=== PATIENT | female | born 1955 | race Caucasian/White ===

== ENCOUNTER → 2018-07-22 | Outpatient (CLI) | payer OTHER, MEDICARE ==
--- NOTE | 2018-07-22 17:04 | RAD ---
EXAM: Chest, 2 views. HISTORY: Melanoma. COMPARISON: 03/25/2016. FINDINGS: 2 views of the chest are obtained. There is no infiltrate, pleural effusion or pneumothorax. The heart is normal in size. IMPRESSION: No acute pulmonary finding. Electronically signed by: Araceli Irving MD (07/22/2018 5:00 PM) [facility]
== END | disposition home or self-care (01) ==
LOC: DXRAD 14:08
PROVIDERS: ATTEND Nurse Practitioner
DX: R05 Cough (principal); Z85.820 Personal history of malignant melanoma of skin
CPT/HCPCS: 71046

== ENCOUNTER → 2018-08-14 | Outpatient (CLI) | payer OTHER, MEDICARE ==
--- NOTE | 2018-08-14 17:19 | RAD ---
Chest, 2 views, 08/14/2018: HISTORY: Shortness of breath Comparison is made to a study from 07/22/2018. The heart size is normal. Coronary radiopacities are evident compatible with calcifications and/or a stent. No pulmonary infiltrate is seen. There is no evidence of pleural fluid. Mild spurring is present in the spine. IMPRESSION: No acute cardiopulmonary abnormality is detected. Electronically signed by: Gal Burr MD (08/14/2018 5:16 PM) [facility]
== END | disposition home or self-care (01) ==
LOC: PMG 12:00
PROVIDERS: ATTEND Physician Assistant Medical
DX: R06.02 Shortness of breath (principal); M46.04 Spinal enthesopathy, thoracic region
CPT/HCPCS: 71046

== ENCOUNTER → 2019-10-05 | Outpatient (CLI) | payer OTHER, MEDICARE ==
[2019-10-05 11:31] LABS: ALBUMIN 3.5 g/dL (3.4-5.0); CALCIUM 8.7 mg/dL (8.5-10.1); CREATININE 1.1 mg/dL (0.6-1.0); POTASSIUM 4.3 mmol/L (3.5-5.1); TOTAL BILIRUBIN 0.3 mg/dL (0.2-1.0); TOTAL PROTEIN 6.9 g/dL (6.4-8.2)
== END | disposition home or self-care (01) ==
LOC: LAB 10:56
PROVIDERS: ATTEND Nurse Practitioner
DX: E78.5 Hyperlipidemia, unspecified (principal)
CPT/HCPCS: 36415; 80053; 80061

== ENCOUNTER → 2019-10-15 | Outpatient (CLI) | payer OTHER, MEDICARE ==
--- NOTE | 2019-10-15 11:45 | RAD ---
EXAM: Chest, 2 views. HISTORY: Cough. COMPARISON: 08/14/2018 FINDINGS: 2 views of chest are obtained. There is no infiltrate, pleural effusion or pneumothorax. The heart is normal in size. IMPRESSION: No acute pulmonary finding. Electronically signed by: Araceli Irving MD (10/15/2019 11:42 AM) [facility]
== END | disposition home or self-care (01) ==
LOC: PMG 11:08
PROVIDERS: ATTEND Registered Nurse
DX: R05 Cough (principal)
CPT/HCPCS: 71046

== ENCOUNTER → 2021-02-15 | Outpatient (CLI) | payer OTHER, MEDICARE ==
--- NOTE | 2021-02-15 17:44 | RAD ---
EXAM: CHEST 2 VIEWS. HISTORY: Respiratory infection. COMPARISON: 10/15/2019. FINDINGS: Frontal and lateral views of the chest are obtained. There are no confluent infiltrates. There is no pneumothorax or pleural effusion. The heart is not en larged. IMPRESSION: 1. No confluent infiltrates. Electronically signed by: Nick Lauren MD (02/15/2021 5:41 PM) [id number]
== END ==
LOC: DXRAD 16:57
PROVIDERS: ATTEND Nurse Practitioner Family
DX: R05 Cough (principal)
CPT/HCPCS: 71046

== ENCOUNTER → 2021-02-23 | Outpatient (CLI) | payer OTHER, MEDICARE ==
--- NOTE | 2021-02-27 13:17 | RAD ---
DATE: February 23, 2021 EXAM: MAMMO EMILY SCREENING BILATERAL HISTORY: Screening. COMPARISON: 2019 This study was interpreted with the benefit of Computerized Aided Detection (CAD). FINDINGS: Breast Density: FATTY The breast parenchyma is primarily fatty replaced. Breast parenchyma level density A.. There are no dominant suspicious masses, suspicious microcalcifications or evidence of architectural distortion. IMPRESSION: No mammographic indicators for malignancy. BI-RADS CATEGORY: 1 NEGATIVE RECOMMENDED FOLLOW-UP: 12M 12 MONTH FOLLOW-UP PQRS compliance statement: Patient information was entered into a reminder system with a target due date February 24, 2022 for the next mammogram. Mammography is a sensitive method for finding small breast cancers, but it does not detect them all and is not a substitute for careful clinical examination. A negative mammogram does not negate a clinically suspicious finding and should not result in delay in biopsying a clinically suspicious abnormality. "Our facility is accredited by the [employer] Mammography Program." The patient's breast density may affect the ability of mammography to detect breast cancer. There are 4 categories of breast density, A, B, C and D. Breast density A means that most of the breast tissue is replaced with adipose tissue and therefore is not dense. Breast density B means that the breast tissue is mildly dense and scattered. Breast density C means that the breast tissue is heterogeneously dense. Breast density D means that the breast tissue is very dense. Breast densities especially C and D may decrease the sensitivity of mammography to detect breast cancer. Therefore, the patient may benefit from 3-D breast mammography (3D breast tomography) as a part of their screening mammogram. Insurance may or may not pay for this additional imaging. The patient's breast density based on today's mammogram is category A.
== END ==
LOC: MAMMO 13:46 → EDSEX 13:46
PROVIDERS: ATTEND Physician Assistant Medical
DX: Z12.31 Encounter for screening mammogram for malignant neoplasm of breast (principal)
CPT/HCPCS: 77063; 77067

== ENCOUNTER → 2021-04-07 | Outpatient (CLI) | payer OTHER, MEDICARE ==
[2021-04-07 09:06] LABS: ALBUMIN 3.7 g/dL (3.4-5.0); CREATININE 1.2 mg/dL (0.6-1.0); GFR 44.9; POTASSIUM 4.1 mmol/L (3.5-5.1); TOTAL BILIRUBIN 0.4 mg/dL (0.2-1.0); TOTAL PROTEIN 7.3 g/dL (6.4-8.2)
== END ==
LOC: LAB 08:01
PROVIDERS: ATTEND Nurse Practitioner
DX: E78.5 Hyperlipidemia, unspecified (principal)
CPT/HCPCS: 36415; 80053; 80061

== ENCOUNTER → 2021-04-07 | Outpatient (CLI) | payer OTHER, MEDICARE ==
[2021-04-07 09:13] LABS: ALBUMIN 3.7 g/dL (3.4-5.0); CREATININE 1.2 mg/dL (0.6-1.0); GFR 44.9; POTASSIUM 4.1 mmol/L (3.5-5.1)
[2021-04-07 09:29] LABS: BASO # 0.1 x10^3/uL (0.0-0.2); BASO % 1 % (0-3); EOS # 0.3 x10^3/uL (0.0-0.7); EOS % 3 % (0-3); HEMATOCRIT 38.9 % (36.0-47.0); HEMOGLOBIN 12.7 g/dL (12.0-15.5); LYMPH # 1.6 x10^3/uL (1.0-4.8); LYMPH % 19 % (24-48); MEAN CORPUSCULAR HEMOGLOBIN 29 pg (25-35); MEAN CORPUSCULAR HGB CONC 33 g/dL (31-37); MEAN CORPUSCULAR VOLUME 89 fL (79-100); MONO # 0.6 x10^3/uL (0.0-1.1); MONO % 7 % (0-9); NEUT % 70 % (31-73); PLATELET COUNT 269 x10^3/uL (140-400); RED BLOOD COUNT 4.36 x10^6/uL (3.50-5.40); RED CELL DISTRIBUTION WIDTH 13.7 % (11.5-14.5); WHITE BLOOD COUNT 8.5 x10^3/uL (4.0-11.0)
[2021-04-07 09:37] LABS: PHOSPHORUS 3.5 mg/dL (2.6-4.7)
[2021-04-07 12:44] LABS: CREATININE,RANDOM URINE 132.2 mg/dL (Not Establ.)
[2021-04-08 07:15] LABS: CALCIUM PTH 9.6 mg/dL (8.7-10.3); CREATININE PTH 1.14 mg/dL (0.57-1.00); PTH INTACT 34 pg/mL (15-65)
== END ==
LOC: LAB 07:54
PROVIDERS: ATTEND Internal Medicine Nephrology
DX: I12.9 Hypertensive chronic kidney disease with stage 1 through stage 4 chronic kidney disease, or unspecified chronic kidney disease (principal); N18.2 Chronic kidney disease, stage 2 (mild); R80.0 Isolated proteinuria
CPT/HCPCS: 36415; 80069; 82570; 83970; 84156; 85025

== ENCOUNTER → 2021-05-29 | Outpatient (CLI) | payer OTHER, MEDICARE ==
[2021-05-29 12:09] LABS: BASO % 1 % (0-3); EOS # 0.3 x10^3/uL (0.0-0.7); EOS % 4 % (0-3); HEMATOCRIT 36.8 % (36.0-47.0); HEMOGLOBIN 11.9 g/dL (12.0-15.5); LYMPH # 1.4 x10^3/uL (1.0-4.8); LYMPH % 22 % (24-48); MEAN CORPUSCULAR HEMOGLOBIN 29 pg (25-35); MEAN CORPUSCULAR HGB CONC 32 g/dL (31-37); MEAN CORPUSCULAR VOLUME 88 fL (79-100); MONO # 0.4 x10^3/uL (0.0-1.1); MONO % 6 % (0-9); NEUT # 4.1 x10^3uL (1.8-7.7); NEUT % 67 % (31-73); PLATELET COUNT 281 x10^3/uL (140-400); RED BLOOD COUNT 4.17 x10^6/uL (3.50-5.40); RED CELL DISTRIBUTION WIDTH 14.4 % (11.5-14.5); WHITE BLOOD COUNT 6.1 x10^3/uL (4.0-11.0)
[2021-05-29 12:17] LABS: ALBUMIN 3.5 g/dL (3.4-5.0); CALCIUM 8.6 mg/dL (8.5-10.1); CREATININE 1.2 mg/dL (0.6-1.0); GFR 44.9; POTASSIUM 4.5 mmol/L (3.5-5.1); TOTAL BILIRUBIN 0.3 mg/dL (0.2-1.0); TOTAL PROTEIN 6.9 g/dL (6.4-8.2)
== END ==
LOC: LAB 11:21
PROVIDERS: ATTEND Clinical Nurse Specialist Oncology
DX: D07.1 Carcinoma in situ of vulva (principal)
CPT/HCPCS: 36415; 80053; 85025

== ENCOUNTER → 2021-06-21 | Outpatient (CLI) | payer OTHER, MEDICARE ==
[2021-06-21 13:50] LABS: BILIRUBIN,URINE NEG (NEG); CLARITY,URINE CLEAR; COLOR,URINE YELLOW; GLUCOSE,URINE NEG (NEG); NITRITE,URINE NEG (NEG); UROBILINOGEN,URINE 0.2 mg/dL (0.2 mg/dL)
[2021-06-21 13:51] LABS: BACTERIA,URINE 0 /HPF (0-FEW); RBC,URINE OCC /HPF (0-2); SQUAMOUS EPITHELIAL CELL,UR FEW /LPF
== END ==
LOC: LAB 12:11
PROVIDERS: ATTEND Clinical Nurse Specialist Oncology
DX: Z87.410 Personal history of cervical dysplasia (principal); Z95.5 Presence of coronary angioplasty implant and graft
CPT/HCPCS: 81001; 87086